=== PATIENT | male | born 1995 | race African-American/Black ===

== ENCOUNTER 2016-08-05 05:57 | Emergency (ER) | payer SELFPAY ==
[2016-08-05] MEDS ORDERED: METHYLPRED SOD SUCC 125 MG/2 ML VIAL ONE (09:05)
[2016-08-05] MEDS ORDERED: SODIUM CHLORIDE 0.9% 1,000 ML ONE (09:06)
[2016-08-05] MEDS ORDERED: PEN G BENZ 1.2M UNITS/2 ML SYR IM ONE (09:25)
[2016-08-05] MEDS ORDERED: KCL 20 MEQ/15 ML UDC ONE (10:37)
== END 2016-08-05 12:54 | disposition home or self-care (01) ==
LOC: ER 05:57
CPT/HCPCS: 96372